=== PATIENT | male | born 1990 | race African-American/Black ===

== ENCOUNTER 2016-07-16 07:00 | Emergency (ER) | payer OTHER ==
[~2016-07-16] VITALS: Ht 162.6 cm; Wt 59.1 kg
[2016-07-16 07:05] VITALS: BP 142/89; PULSE 77; RESP 14; O2SAT 100
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
--- NOTE | 2016-07-16 09:36 | DRSVH ---
PROCEDURE: X-RAY CHEST, TWO VIEWS ([id number]) INDICATIONS: left sided numbness, eval pulm arteries TECHNIQUE: 2 views of the chest were acquired. COMPARISON: None. FINDINGS: Surgical changes and devices: None. Lungs and pleura: No pleural effusions or pneumothorax. Lungs are clear. Mediastinum: Mediastinal contours are normal. Heart size is normal. Bones and chest wall: No suspicious bony abnormalities. Soft tissues appear unremarkable. IMPRESSION: No acute cardiopulmonary disease process. Dictated by: Cheryl Fabian MD, PhD on 07/16/2016 at 9:34 Approved by: Cheryl Fabian MD, PhD on 07/16/2016 at 9:35
[2016-07-16 12:55] VITALS: BP 128/81; PULSE 71; O2SAT 98
[2016-07-16 13:12] LABS: BASOPHILS % (AUTO) 0.1 % (0-3); EOSINOPHILS % (AUTO) 2.2 % (0-5); MONOCYTES % (AUTO) 12.9 % (4-12); Mean Corpuscular Hemoglobin 29.3 pg (27.0-35.0); Mean Corpuscular Volume 84.4 fL (81-100); NEUTROPHILS % (AUTO) 59.4 % (40-74); Platelet Count 224 bil/L (150-400)
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
--- NOTE | 2016-07-16 13:26 | DRSVH ---
PROCEDURE: MRI CERVICAL SPINE WITH AND WITHOUT CONTRAST ([id number]) INDICATIONS: left sided numbness of neck, arm, torso, upper leg TECHNIQUE: Noncontrast sagittal T1 spin echo and T2 fast spin echo, sagittal STIR, foraminal oblique sagittal T2 fast spin echo, axial gradient echo or T2 fast spin echo through the cervical spine. After the admi nistration of contrast, axial and sagittal T1 spin echo with fat saturation through the cervical spin e. COMPARISON: None. FINDINGS: Image quality: Excellent. Alignment and curvature: There is normal bony alignment. There is mild jejunal cervical spine curvat ure. Marrow: Marrow is normal in overall signal, without suspicious enhancement. No evidence of fracture or subluxation. Spinal cord: There is a syrinx which extends from the C2 vertebral body into the upper thoracic spine . No discrete mass identified in the cervical spinal cord. No abnormal post contrast-enhancement noti fied and he cervical spinal cord. No cerebellar tonsillar herniation. No abnormal intramedullary enh ancement. Paraspinous soft tissues: No paravertebral masses or suspicious enhancement. C2-3: Normal appearance. C3-4: Normal appearance. C4-5: Normal appearance. C5-6: Normal appearance. C6-7: Normal appearance. C7-T1: Normal appearance. IMPRESSION: 1. C2 through upper thoracic spine syrinx. 2. No discrete mass or abnormal postcontrast enhancement. Dictated by: Cheryl Fabian MD, PhD on 07/16/2016 at 13:19 Approved by: Cheryl Fabian MD, PhD on 07/16/2016 at 13:25
[2016-07-16 17:17] VITALS: BP 130/73; PULSE 74; RESP 18; O2SAT 98
== END 2016-07-16 17:18 | disposition home or self-care (01) ==
LOC: SED 07:00
DX: G95.0 Syringomyelia and syringobulbia (principal); R20.0 Anesthesia of skin; V00.131A Fall from skateboard, initial encounter; Y93.51 Activity, roller skating (inline) and skateboarding; Y92.89 Other specified places as the place of occurrence of the external cause; Y99.8 Other external cause status
CPT/HCPCS: 36415; 71020; 72125; 72156; 72157; 80053; 85025; 99284; A9585